=== PATIENT | male | born 1950 | race African-American/Black ===

== ENCOUNTER 2024-11-24 09:46 | Inpatient (IN) | payer MEDICARE, MEDICAID ==
[~2024-11-24] VITALS: Ht 175.3 cm; Wt 81.6 kg
[2024-11-24] VITALS (10 sets, daily range): BP systolic 119–160; BP diastolic 68–91; PULSE 93–100; RESP 23–38; TEMP 36.5–36.7; O2SAT 92–99
[~2024-11-24 09:46] MED LIST: AMLO10TA80 PO; ASPI-1406 PO; HYDR50TA39 PO; LOSA100T33 PO; PRED10TA PO
[2024-11-24] MEDS: METHYLPREDNISOLONE SOD SUCC 125MG/2ML (ACT-O-VIAL) IV STA (09:58)
[2024-11-24] MEDS: IPRATROPIUM BROMIDE (0.02%) 0.5MG/2.5ML NEB HHN STA (09:59)
[2024-11-24] MEDS: ALBUTEROL (0.083%) 2.5MG/3ML NEB HHN STA (09:59)
[2024-11-24 10:06] LABS: HEMATOCRIT. 48.3 % (42.0-52.0); HEMOGLOBIN. 15.9 g/dL (14.0-18.0); MEAN CORPUSCULAR HEMOGLOBIN 31.1 pg (28.0-32.0); MEAN CORPUSCULAR HGB CONC 32.9 g/dL (31.0-37.0); MEAN CORPUSCULAR VOLUME 94.6 fL (80.0-94.0); MEAN PLATELET VOLUME 8.5 fl (7.4-10.4); PLATELET 217 x1000/uL (130-400); RED BLOOD CELL COUNT 5.11 mill/uL (4.7-6.1); RED CELL DISTRIBUTION WIDTH 14.8 % (11.6-14.6); WHITE BLOOD COUNT 6.3 x1000/uL (4.5-11.0)
[2024-11-24 10:10] LABS: DIFFERENTIAL COMMENT 1
[2024-11-24 10:19] LABS: CARBON DIOXIDE 22 mEq/L (21-32); CHLORIDE 102 mEq/L (98-107); POTASSIUM 4.2 mEq/L (3.5-5.1); SODIUM 139 mEq/L (136-145)
[2024-11-24 10:20] LABS: CALCIUM 8.8 mg/dL (8.7-10.4)
[2024-11-24 10:25] LABS: GLUCOSE 159 mg/dL (70-105); TROPONIN I HIGH SENSITIVITY 18 ng/L (3.0-53); UREA NITROGEN BLOOD 15 mg/dL (9-23)
[2024-11-24 10:28] LABS: CREATININE 1.4 mg/dL (0.6-1.3)
[2024-11-24 10:39] LABS: BG BASE EXCESS -1.4 mmol/L (-2.0-3.0); BG CARBOXYHEMOGLOBIN 0.3 % (0.5-1.5); BG DEOXYHEMOGLOBIN 0.2 % (0.0-5.0); BG FRACTION INSPIRED OXYGEN 80; BG HCO3 ACT 23.9 mmol/L (21.0-28.0); BG METHEMOGLOBIN 0.4 % (0.5-1.5); BG OXYGEN SATURATION 99.8 % (94.0-98.0); BG OXYHEMOGLOBIN 99.1 % (94.0-98.0); BG PCO2 42.4 mmHg (35.0-48.0); BG PH 7.369 (7.350-7.450); BG PO2 370.1 mmHg (83.0-108.0); BG SAMPLE SITE RIGHT RADIAL; BG TOTAL HEMOGLOBIN 16.7 g/dL (13.5-17.5); BG TOTAL RESPIRATORY RATE 26 b/min; BG VENT MODE MASK - BIPAP
[2024-11-24 11:38] LABS: PLATELET ESTIMATE NORMAL
[2024-11-24] MEDS ORDERED: CEFEPIME 1GM IN DEXT 5% 50ML IV SCH (16:45)
[2024-11-24] MEDS: IPRATROPIUM/ALBUTEROL 0.5-3(2.5)MG/3ML NEB HHN SCH (17:28)
[2024-11-24] MEDS: BUDESONIDE 0.5MG/2ML NEB HHN NR (17:28)
[2024-11-24] MEDS: METHYLPREDNISOLONE SOD SUCC 125MG/2ML (ACT-O-VIAL) IV SCH (18:56)
[2024-11-24] MEDS: PANTOPRAZOLE SODIUM 40 MG/VIAL IV SCH (18:56)
[2024-11-24] MEDS: ENOXAPARIN 40MG/0.4ML SYR SUBCUT SCH (18:57)
[2024-11-24] MEDS: LEVOFLOXACIN 750MG PREMIX 150 ML IV SCH (20:55)
[2024-11-24] MEDS: BUDESONIDE 0.5MG/2ML NEB HHN SCH (21:01)
[2024-11-24] MEDS ORDERED: CLONIDINE 0.1MG TABLET PO PRN (22:15)
[2024-11-25] VITALS (17 sets, daily range): BP systolic 117–156; BP diastolic 85–103; PULSE 73–93; RESP 20–34; TEMP 36.2–36.9; O2SAT 95–100
[2024-11-25] MEDS: MONTELUKAST SODIUM 10MG TABLET PO SCH (01:22)
[2024-11-25] MEDS: HYDRALAZINE HCL 50MG TABLET PO SCH (05:29)
[2024-11-25 08:29] LABS: *AMPHETAMINES SCREEN URINE NEGATIVE (NEGATIVE); *BARBITURATES SCREEN URINE NEGATIVE (NEGATIVE); *BENZODIAZEPINES SCREEN URINE NEGATIVE (NEGATIVE); *COCAINE SCREEN URINE NEGATIVE (NEGATIVE); CANNABINOID URINE SCREEN NEGATIVE (NEGATIVE); ECSTASY MDMA SCREEN URINE NEGATIVE (NEGATIVE); METHADONE URINE SCREEN NEGATIVE (NEGATIVE); OPIATES URINE SCREEN PRESUMPTIVE POSITIVE (NEGATIVE); PHENCYCLIDINE URINE SCREEN NEGATIVE (NEGATIVE)
[2024-11-25] MEDS: ASPIRIN 81MG EC TABLET PO SCH (08:32)
[2024-11-25 09:05] LABS: BASOPHILS % 0.1 % (0.0-2.0); HEMOGLOBIN. 14.8 g/dL (14.0-18.0); LYMPHOCYTES % 15.9 % (20.0-50.0); MEAN CORPUSCULAR HEMOGLOBIN 31.2 pg (28.0-32.0); MEAN CORPUSCULAR HGB CONC 32.9 g/dL (31.0-37.0); MEAN CORPUSCULAR VOLUME 94.9 fL (80.0-94.0); MONOCYTES % 11.9 % (2.0-8.0); NEUTROPHILS % 72.1 % (40.0-76.0); PLATELET 205 x1000/uL (130-400); RED BLOOD CELL COUNT 4.74 mill/uL (4.7-6.1); RED CELL DISTRIBUTION WIDTH 14.5 % (11.6-14.6); WHITE BLOOD COUNT 4.4 x1000/uL (4.5-11.0)
[2024-11-25 09:46] LABS: CARBON DIOXIDE 27 mEq/L (21-32); CHLORIDE 100 mEq/L (98-107); POTASSIUM 4.9 mEq/L (3.5-5.1); SODIUM 138 mEq/L (136-145)
[2024-11-25 09:52] LABS: CREATININE 1.2 mg/dL (0.6-1.3); GLUCOSE 111 mg/dL (70-105); TRIGLYCERIDE 112 mg/dL (0-150); UREA NITROGEN BLOOD 25 mg/dL (9-23)
[2024-11-25 09:53] LABS: LDL CHOLESTEROL 98 mg/dL (5-100)
[2024-11-25 09:54] LABS: CHOLESTEROL 148 mg/dL (<200); HDL CHOLESTEROL 31 mg/dL (>55)
[2024-11-25 09:56] LABS: T4 FREE 1.22 ng/dL (0.89-1.76); THYROID STIMULATING HORMONE 0.73 uIU/mL (0.55-4.78)
[2024-11-25] MEDS ORDERED: CICL30GE5 TP (12:24)
[2024-11-25 13:35] LABS: BG BASE EXCESS 1.3 mmol/L (-2.0-3.0); BG CARBOXYHEMOGLOBIN 0.2 % (0.5-1.5); BG DEOXYHEMOGLOBIN 4.9 % (0.0-5.0); BG FRACTION INSPIRED OXYGEN 32; BG OXYGEN SATURATION 95.1 % (94.0-98.0); BG OXYHEMOGLOBIN 94.9 % (94.0-98.0); BG PCO2 41.6 mmHg (35.0-48.0); BG PH 7.414 (7.350-7.450); BG PO2 72.4 mmHg (83.0-108.0); BG SAMPLE SITE RIGHT BRACHIAL; BG TOTAL HEMOGLOBIN 15.5 g/dL (13.5-17.5); BG VENT MODE NASAL CANNULA
[2024-11-25] MEDS: GUAIFENESIN 600MG ER TABLET PO SCH (21:37)
[2024-11-26] VITALS (11 sets, daily range): BP systolic 129–150; BP diastolic 67–96; PULSE 72–87; RESP 16–26; TEMP 36.2–36.8; O2SAT 94–98
[2024-11-26] MEDS: FAMOTIDINE 20MG/2ML VIAL IV SCH (08:19)
[2024-11-27] VITALS (10 sets, daily range): BP systolic 113–155; BP diastolic 49–85; PULSE 73–96; RESP 16–30; TEMP 36.2–36.9; O2SAT 95–100
[2024-11-27 06:44] LABS: HEMOGLOBIN. 14.3 g/dL (14.0-18.0); LYMPHOCYTES % 9.2 % (20.0-50.0); MEAN CORPUSCULAR HEMOGLOBIN 30.5 pg (28.0-32.0); MEAN CORPUSCULAR HGB CONC 32.6 g/dL (31.0-37.0); MEAN CORPUSCULAR VOLUME 93.6 fL (80.0-94.0); MONOCYTES % 7.2 % (2.0-8.0); NEUTROPHILS % 83.6 % (40.0-76.0); PLATELET 213 x1000/uL (130-400); RED CELL DISTRIBUTION WIDTH 14.8 % (11.6-14.6); WHITE BLOOD COUNT 8.2 x1000/uL (4.5-11.0)
[2024-11-27 06:54] LABS: CARBON DIOXIDE 27 mEq/L (21-32); CHLORIDE 102 mEq/L (98-107); POTASSIUM 4.8 mEq/L (3.5-5.1); SODIUM 138 mEq/L (136-145)
[2024-11-27 06:55] LABS: CALCIUM 8.5 mg/dL (8.7-10.4)
[2024-11-27 07:00] LABS: GLUCOSE 103 mg/dL (70-105); UREA NITROGEN BLOOD 21 mg/dL (9-23)
[2024-11-27] MEDS ORDERED: *PATIENT'S OWN MEDICATION STORAGE XX SCH (15:15)
[2024-11-27] MEDS: LEVOFLOXACIN 750MG PREMIX 150 ML IV SCH (21:28)
[2024-11-28] VITALS (11 sets, daily range): BP systolic 124–157; BP diastolic 66–96; PULSE 72–87; RESP 18–43; TEMP 36.2–36.9; O2SAT 92–100
[2024-11-28] MEDS: METHYLPREDNISOLONE SOD SUCC 40MG/ML (ACT-O-VIAL) IV SCH (13:37)
[2024-11-28] MEDS ORDERED: GUAI600T44 PO (15:23)
[2024-11-28] MEDS ORDERED: MONT-46 PO (15:23)
[2024-11-28] MEDS ORDERED: METH4TAB95 MT (15:23)
[2024-11-28] MEDS ORDERED: IPRA3AMP9 HHN (15:23)
== END 2024-11-28 17:20 | disposition home or self-care (01) | DRG 189 ==
LOC: ER 09:46 → EDBEDREQ 10:31 → 5EST 15:39
PROVIDERS: ADMIT Internal Medicine; ATTEND Internal Medicine
PROC: 5A09357 Assistance with Respiratory Ventilation, Less than 24 Consecutive Hours, Continuous Positive Airway Pressure (ICD-10-PCS; principal; 2024-11-24)
PROC: 5A09357 Assistance with Respiratory Ventilation, Less than 24 Consecutive Hours, Continuous Positive Airway Pressure (ICD-10-PCS; 2024-11-28)
DX: J96.01 Acute respiratory failure with hypoxia (principal); J44.1 Chronic obstructive pulmonary disease with (acute) exacerbation; I50.9 Heart failure, unspecified; Z20.822 Contact with and (suspected) exposure to COVID-19; I25.10 Atherosclerotic heart disease of native coronary artery without angina pectoris; I11.0 Hypertensive heart disease with heart failure; Z79.899 Other long term (current) drug therapy; Z87.891 Personal history of nicotine dependence; Z88.0 Allergy status to penicillin
CPT/HCPCS: 36415; 36600; 71045; 80048; 80061; 80305; 82375; 82805; 83880; 84439; 84443; 84484; 85025; 87070; 87426; 93005; 94070; 94640; 94660; 94664; 99291; A4606; J1650; J1956; J2470; J2919; J3490; J7626